=== PATIENT | male | born 1970 | race Caucasian/White ===

== ENCOUNTER 2025-01-01 12:06 | Emergency (ER) | payer BC ==
[2025-01-01 12:42] VITALS: TEMP 97
--- NOTE | 2025-01-01 13:30 | ERPHSYRPT ---
- History of Present Illness Time Seen by Provider: 01/01/25 12:19 Source: patient Exam Limitations: no limitations Patient Subjective Stated Complaint: C/O right lower back pain that radiates into patient's RLE. Patient indicates this is from a buldging disc in his back t hat is hitting a nerve. States this has been going on for almost a year. States he is here for some releif. Triage Nursing Assessment: Patient ambulated back to ER with an uneven gait. He is alert and oriented. Denies any falls or injury. Skin tone normal. No SOB. Physician History: 54-year-old male with history of tobacco use/COPD, coronary artery disease with stenting, currently on aspirin and Brilinta, chronic back pain with bulging disc radiation to right lower extremity presented in the ER with increasing pain right lower back with radiation to the right lower extremity. Denies any numbness tingling or weakness of lower extremity. Has been taking [id number] medications with no significant relief. Patient reports he has seen pain management and they cannot do much about his pain because of him being on Brilinta and cannot come off of it. Denies any fall or trauma. Allergies/Adverse Reactions: No Known Drug Allergies Allergy (Verified 01/01/25 12:18) Home Medications: Aspirin EC 81 mg [Ecotrin 81 mg] 81 mg PO DAILY 01/01/25 [History] Atorvastatin Calcium [Lipitor 40Mg] 40 mg PO DAILY 01/01/25 [History] Losartan Potassium 50 mg [Cozaar 50 MG] 50 mg PO DAILY 01/01/25 [History] Metoprolol Tartrate 25 mg [Lopressor 25MG Tab] 25 mg PO BID 01/01/25 [History] Ticagrelor [Brilinta] 90 mg PO BID 01/01/25 [History] Hx Tetanus, Diphtheria Vaccination/Date Given: Yes Immunizations Up to Date: Yes Travel Risk - International Travel Have you traveled outside of the country in past 3 weeks: No - Emerging Infectious Disease Are you exhibiting symptoms associated with any current EIDs: No - Review of Systems Constitutional: No Symptoms Respiratory: No Symptoms Cardiac: No Symptoms Abdominal/Gastrointestinal: No Symptoms Genitourinary Symptoms: No Symptoms Musculoskeletal: Back Pain Skin: No Symptoms Neurological: No Symptoms Endocrine: No Symptoms - Past Medical History Pertinent Past Medical History: Yes Neurological History: No Pertinent History Cardiac History: Coronary Artery Disease, High Cholesterol, Hypertension, Myocardial Infarction ([place]) Respiratory History: No Pertinent History Endocrine Medical History: No Pertinent History Musculoskeletal History: Degenerative Disk Disease, Osteoarthritis Other Medical History: [place] Diver: Dr. Carson - Past Surgical History Past Surgical History: Yes Cardiac: Cardiac Catheterization, Cardiac Stent - Social History Smoking Status: Current some day smoker Drug Use: none - Social Determinants of Health Will the patient participate in the screening: Declined to provide - Nursing Vital Signs Nursing Vital Signs: Initial Vital Signs Pulse Rate 71 01/01/25 12:17 Respiratory Rate 14 01/01/25 12:17 Blood Pressure 139/95 01/01/25 12:17 O2 Sat by Pulse Oximetry 99 01/01/25 12:17 Pain Scale Pain Intensity 10 - Physical Exam General Appearance: no apparent distress Eye Exam: PERRL/EOMI Ears, Nose, Throat Exam: normal ENT inspection Neck Exam: normal inspection, non-tender, supple, full range of motion Respiratory Exam: normal breath sounds, lungs clear Cardiovascular Exam: regular rate/rhythm, normal heart sounds Gastrointestinal Exam: soft, normal bowel sounds, No tenderness Back Exam: decreased range of motion, muscle spasm, point tenderness (Right sacroiliac area), other (Straight leg raising test positive at 45 degree elevation of the right) Extremity Exam: normal inspection, normal range of motion, pelvis stable Neurologic Exam: alert, oriented x 3, cooperative, skiver sock linings II-XII nml as tested, normal mood/affect, nml cerebellar function, nml station & gait, sensation nml, No motor deficits Skin Exam: normal color SpO2 Interpretation: normal SpO2: 96 O2 Delivery: Room Air Ordered Tests: Medication Summary Discontinued Medications Generic Name Dose Route Start Last Admin Trade Name Freq PRN Reason Stop Dose Admin Morphine Sulfate 4 mg 01/01/25 13:27 01/01/25 14:06 Morphine Sulfate 4 Mg/Ml Injection IM 01/01/25 13:28 4 mg STAT ONE Administration Morphine Sulfate Confirm 01/01/25 14:03 Morphine Sulfate 4 Mg/Ml Injection Administered 01/01/25 14:04 Dose 4 mg .ROUTE .STK-MED ONE Orphenadrine Citrate 60 mg 01/01/25 13:27 01/01/25 14:06 Orphenadrine Citrate 60 Mg/2 Ml Vial IM 01/01/25 13:28 60 mg STAT ONE Administration Orphenadrine Citrate Confirm 01/01/25 14:03 Orphenadrine Citrate 60 Mg/2 Ml Vial Administered 01/01/25 14:04 Dose 60 mg .ROUTE .STK-MED ONE - Progress Progress: improved, pain not gone completely, re-examined Progress Note: 01/01/25 14:36 54-year-old with history of chronic back pain, coronary artery disease with stenting on Brilinta/aspirin is evaluated for right low back pain with radiation to the right lower extremity. Negative neuroexam in lower extremities, has no cauda equina symptoms. Given symptomatic treatment, feeling better on reevaluation and able to ambulate without any assistance. Patient wants to go home which is reasonable., Recommended taking Tylenol and will give Robaxin to go home to take as needed for spasms I believe patient has low back pain with radiation/sciatica. Discussed outpatient follow-up with primary care/pain clinic, also discussed signs symptoms of worsening needing return to ER which she seems understanding. Stable for discharge. Complexity of problems addressed: Moderate acute on chronic Complexity of data reviewed and analyzed: Limited Morbidity/mortality risk associated with patient management: Mild to moderate Counseled pt/family regarding: diagnosis, need for follow-up Medical Desision Making - Diagnostic Testing Diagnostic test were ordered, analyzed, and reviewed by me: No - Risk of complications The pt has a mod risk of morbidity or mortality based on: Need for prescription drug management - Departure Departure Disposition: Home Clinical Impression: Back pain of lumbosacral region with sciatica Condition: Stable Critical Care Time: No Referrals: ARELI EDWARDS PA [Primary Care Provider] - Follow up with PCP 1 day Instructions: Sciatica (DC), Low Back Pain (DC) Additional Instructions: Take Tylenol/Robaxin as needed Follow-up with primary care for reevaluation and may need referral for pain ma yash. Return to ER for any worsening of pain or if develop numbness tingling weakness of lower extremities/loss of bowel or bladder control/saddle anesthesia Prescriptions: Methocarbamol [Robaxin] 750 mg PO Q8HPRN PRN 10 Days #30 tablet PRN Reason: Pain
[2025-01-01] MEDS ORDERED: Norflex 60 MG/2 ML ONE (14:03)
[2025-01-01] MEDS ORDERED: MORPHINE SULFATE 4 MG INJ ONE (14:03)
[2025-01-01] MEDS: Norflex 60 MG/2 ML IM ONE (14:06)
[2025-01-01] MEDS: MORPHINE SULFATE 4 MG INJ IM ONE (14:06)
[2025-01-01 14:12] VITALS: BP 124/84; PULSE 81; RESP 17
[2025-01-01 14:40] VITALS: O2SAT 96
== END 2025-01-01 14:45 | disposition home or self-care (01) ==
LOC: ED 12:06
DX: M54.41 Lumbago with sciatica, right side (principal); E78.5 Hyperlipidemia, unspecified; I10 Essential (primary) hypertension; Z79.02 Long term (current) use of antithrombotics/antiplatelets; Z79.899 Other long term (current) drug therapy; Z72.0 Tobacco use
CPT/HCPCS: 96372; 99283; 99284; J2270; J2360

== ENCOUNTER 2025-02-19 11:55 | Day surgery (SDC) | payer BC ==
[2025-02-19] MEDS ORDERED: dexAMETHasone sodium phosphate IJ ONE (11:56)
[2025-02-19] MEDS ORDERED: Sodium Chloride 0.9(Preservative Free) 10 ML IJ ONE (11:56)
[2025-02-19] MEDS ORDERED: propofoL IV ONE (13:36)
--- NOTE | 2025-02-19 19:25 | XRAY ---
32 seconds of fluoroscopy was used in surgery for a right L4-S1 transforaminal JOHN.
--- NOTE | 2025-02-19 19:39 | XRAY ---
Indication: Right L4-S1 transforaminal JOHN. Intraoperative fluoroscopy provided for 32 seconds. 4 digital spot image submitted for interpretation demonstrates posterior needle tips projecting over expected right L4 and L5 nerve roots. Small amount of contrast injected for needle tip placement. Correlate with intraoperative findings/report.
== END 2025-02-19 14:25 | disposition home or self-care (01) ==
LOC: SDC-PAIN 11:55
PROVIDERS: ATTEND Psychiatry & Neurology Pain Medicine
DX: M54.16 Radiculopathy, lumbar region (principal)
CPT/HCPCS: 64483; 64484; 72100; J1100; J2704; Q9966

== ENCOUNTER 2025-03-18 08:07 | Day surgery (SDC) | payer BC ==
[2025-03-18] MEDS ORDERED: Sodium Chloride 0.9(Preservative Free) 10 ML IJ ONE (08:08)
[2025-03-18] MEDS ORDERED: methylPREDNISolone acetate IM ONE (08:08)
[2025-03-18] MEDS ORDERED: propofoL IV ONE (10:22)
[2025-03-18] MEDS ORDERED: Lactated Ringers 1,000 ML IV ONE ×2 (10:37→13:41)
--- NOTE | 2025-03-18 21:12 | XRAY ---
Indication: Caudal JOHN. Intraoperative fluoroscopy provided for 14 seconds. 2 digital spot image submitted for interpretation demonstrates caudal needle tip projecting mid sacrum. Small amount of contrast injected for needle tip placement. Correlate with intraoperative findings/report.
--- NOTE | 2025-03-18 21:22 | XRAY ---
14 seconds of fluoroscopy was used in surgery for a caudal JOHN.
== END 2025-03-18 10:52 | disposition home or self-care (01) ==
LOC: SDC-PAIN 08:07
PROVIDERS: ATTEND Psychiatry & Neurology Pain Medicine
DX: M54.16 Radiculopathy, lumbar region (principal)
CPT/HCPCS: 62323; 72220; J1010; J2704; Q9966